=== PATIENT | female | born 1980 | race Caucasian/White ===

== ENCOUNTER 2019-09-18 22:28 | Emergency (ER) | payer MEDICAID ==
[~2019-09-18] VITALS: Ht 172.7 cm; Wt 63.5 kg
[2019-09-18 22:32] VITALS: Ht 172.7 cm; Wt 63.5 kg
[2019-09-18] MEDS ORDERED: HYDROCODONE-A1 UDTA2 PO (23:13)
[2019-09-18] MEDS ORDERED: CLEOCIN HCL300 MG PO (23:20)
[2019-09-18] MEDS ORDERED: NAPROSYN500 MG PO (23:21)
[2019-09-18 23:47] VITALS: BP 128/85
== END 2019-09-18 23:47 | disposition home or self-care (01) ==
LOC: D.ER 22:28
DX: S91.332A Puncture wound without foreign body, left foot, initial encounter (principal); W22.8XXA Striking against or struck by other objects, initial encounter; Z23 Encounter for immunization